=== PATIENT | male | born 1940 | race Caucasian/White ===

== ENCOUNTER 2018-01-17 17:55 | Outpatient (CLI) | payer MEDICARE ==
--- NOTE | 2018-01-17 19:24 | RAD ---
TWO VIEW CHEST: History: COPD. Shortness of breath. Comparison: None. FINDINGS: Question streaky infiltrate in the left lung base. The diaphragms are flattened consistent with COPD and volume expansion. There is nodular density in the left midlung field which is not definitely calc ified. This needs to be further evaluated with CT. This nodular density measures approximately 7-8 mm . There is another small nodule just inferior which probably is calcified. IMPRESSION: 1. Question streaky infiltrate in the left lung base. 2. A nodule overlying the left midlung consistent with pulmonary nodule, possibly calcified but not c onfirmed. Recommend further evaluation with CT chest. Code T POS: [id number]
== END 2018-01-17 17:56 | disposition home or self-care (01) ==
LOC: MADRAD 17:55
PROVIDERS: ATTEND Nurse Practitioner Family
DX: I50.9 Heart failure, unspecified (principal); J44.1 Chronic obstructive pulmonary disease with (acute) exacerbation; R91.8 Other nonspecific abnormal finding of lung field
CPT/HCPCS: 71046